=== PATIENT | female | born 1955 | race Caucasian/White ===

== ENCOUNTER → 2017-05-14 09:31 | Outpatient (CLI) | payer SELFPAY ==
[2017-05-14 12:33] LABS: ALB/GLOB Ratio 1.1 RATIO (0.9-2.4); AST(SGOT) 16 U/L (15-37); Alanine Aminotransfer ALT/SGPT 21 U/L (13-56); Albumin, Serum 3.6 g/dL (3.2-5.0); Alkaline Phosphatase 38 U/L (45-117); Anion Gap 4 (5-15); BUN 16 mg/dL (7-18); BUN/Creat Ratio 21.8 RATIO (10-20); Calcium,Total 8.9 mg/dL (8.5-10.1); Chloride 108 mmol/L (98-107); Creatinine, Serum 0.74 mg/dL (0.55-1.02); EST Glomerular Filtration Rate 85 mL/min (>60); Est Glom Filt Rate - Afr Amer 103 mL/min (>60); Globulin 3.2 g/dL (2.2-4.2); Glucose 75 mg/dL (74-106); Potassium 3.8 mmol/L (3.5-5.1); Protein, Total 6.8 g/dL (6.4-8.2); Sodium Level 143 mmol/L (136-145)
[2017-05-14 12:38] LABS: Absolute Lymphocyte Count 2.57 X10^3/ul (0.83-4.51); Absolute Neutrophil Count 1.5 X10^3/uL (2.0-7.7); Basophil# 0.01 X10^3/uL; Basophil% 0.2 % (0-1); Eosinophil# 0.09 X10^3/uL; Eosinophils% 1.9 % (0-5); Hematocrit 39.6 % (37-47); Hemoglobin 12.8 g/dl (12.0-15.0); Lymphocyte # 2.57 X10^3/ul (4.0); Lymphocyte % 55.5 % (19-41); Mean Corp Hgb Conc 32.3 g/gl (32-36); Mean Corpuscular Volume 95.9 fL (81-99); Mean Platelet Vol. 10.9 fl (6.2-12.0); Monocyte# 0.49 X10^3/uL; Monocyte% 10.6 % (0-10); Neutrophil # 1.46 X10^3/uL (2.7-7.7); Neutrophil % 31.6 % (47-70); Platelet Count 166 K/mm3 (150-450); RBC Distribution Width CV 13.9 % (11.6-14.6); RBC Distribution Width SD 48.5 fl (35.1-43.9); Red Blood Count 4.13 M/mm3 (4.2-5.4); White Blood Count 4.6 K/mm3 (4.4-11.0)
[2017-05-14 12:39] LABS: Valproic Acid (Depakene) Level 92 ug/mL (50-100)
[2017-05-14 12:48] LABS: POSITIVE COUNT NO; POSITIVE DIFFERENTIAL NO; POSITIVE MORPHOLOGY NO
== END ==
PROVIDERS: PCP Family Medicine; Visit Provider Psychiatry & Neurology Neurology
DX: G40.009 Localization-related (focal) (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, not intractable, without status epilepticus (principal); M81.0 Age-related osteoporosis without current pathological fracture
CPT/HCPCS: 36415; 80053; 80164; 85025

== ENCOUNTER → 2018-06-03 | Outpatient (CLI) | payer SELFPAY ==
[2018-06-03 12:55] LABS: Valproic Acid (Depakene) Level 90 ug/mL (50-100)
[2018-06-03 13:03] LABS: ALB/GLOB Ratio 0.9 RATIO (0.9-2.4); AST(SGOT) 17 U/L (15-37); Alanine Aminotransfer ALT/SGPT 20 U/L (13-56); Albumin, Serum 3.6 g/dL (3.2-5.0); Alkaline Phosphatase 48 U/L (45-117); Anion Gap 5 (5-15); BUN 21 mg/dL (7-18); BUN/Creat Ratio 24.8 RATIO (10-20); Calcium,Total 9.4 mg/dL (8.5-10.1); Chloride 105 mmol/L (98-107); Creatinine, Serum 0.85 mg/dL (0.55-1.02); EST Glomerular Filtration Rate 72 mL/min (>60); Est Glom Filt Rate - Afr Amer 88 mL/min (>60); Globulin 3.8 g/dL (2.2-4.2); Glucose 88 mg/dL (74-106); Potassium 4.1 mmol/L (3.5-5.1); Protein, Total 7.4 g/dL (6.4-8.2); Sodium Level 141 mmol/L (136-145)
== END | disposition home or self-care (01) ==
PROVIDERS: Family Provider Family Medicine; PCP Family Medicine; Referring Provider Psychiatry & Neurology Neurology; Visit Provider Psychiatry & Neurology Neurology
DX: G40.009 Localization-related (focal) (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, not intractable, without status epilepticus (principal)
CPT/HCPCS: 36415; 80053; 80164

== ENCOUNTER → 2019-07-07 09:47 | Outpatient (CLI) | payer SELFPAY ==
[2019-07-07 12:13] LABS: Absolute Lymphocyte Count 2.57 X10^3/uL (0.83-4.51); Absolute Neutrophil Count 2.4 X10^3/uL (2.0-7.7); Basophil# 0.01 X10^3/uL; Basophil% 0.2 % (0-1); Eosinophil# 0.05 X10^3/uL; Eosinophils% 0.9 % (0-5); Hemoglobin 13.3 g/dL (12.0-15.0); Lymphocyte # 2.57 X10^3/ul (4.0); Lymphocyte % 45.8 % (19-41); Mean Corp Hgb Conc 33.3 g/dL (32-36); Mean Corpuscular Hgb 31.6 pg (27.0-32.0); Mean Platelet Vol. 10.5 fl (6.2-12.0); Monocyte# 0.58 X10^3/uL; Monocyte% 10.3 % (0-10); NRBC Flagged by Analyzer 0 % (0-5); Neutrophil # 2.39 X10^3/uL (2.7-7.7); Neutrophil % 42.6 % (47-70); Platelet Count 172 K/mm3 (150-450); RBC Distribution Width CV 13.6 % (11.6-14.6); RBC Distribution Width SD 47.3 fl (35.1-43.9); Red Blood Count 4.21 M/mm3 (4.2-5.4); White Blood Count 5.6 K/mm3 (4.4-11.0)
[2019-07-07 12:34] LABS: ALB/GLOB Ratio 1.1 RATIO (0.9-2.4); AST(SGOT) 15 U/L (15-37); Alanine Aminotransfer ALT/SGPT 22 U/L (13-56); Albumin, Serum 3.8 g/dL (3.2-5.0); Alkaline Phosphatase 44 U/L (45-117); Amylase 61 U/L (25-115); Anion Gap 5 (5-15); BUN 20 mg/dL (7-18); Calcium,Total 9.5 mg/dL (8.5-10.1); Chloride 109 mmol/L (98-107); Creatinine, Serum 0.84 mg/dL (0.55-1.02); EST Glomerular Filtration Rate 73 mL/min (>60); Est Glom Filt Rate - Afr Amer 89 mL/min (>60); Globulin 3.5 g/dL (2.2-4.2); Glucose 83 mg/dL (74-106); Lipase 169 U/L (73-393); Protein, Total 7.3 g/dL (6.4-8.2); Sodium Level 143 mmol/L (136-145)
[2019-07-07 12:38] LABS: Valproic Acid (Depakene) Level 78 ug/mL (50-100)
== END ==
PROVIDERS: PCP Family Medicine; Referring Provider Psychiatry & Neurology Neurology; Visit Provider Psychiatry & Neurology Neurology
DX: G40.009 Localization-related (focal) (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, not intractable, without status epilepticus (principal); G47.00 Insomnia, unspecified; M81.0 Age-related osteoporosis without current pathological fracture
CPT/HCPCS: 36415; 80053; 80164; 82150; 83690; 85025

== ENCOUNTER → 2019-08-25 12:13 | Outpatient (CLI) | payer SELFPAY ==
--- NOTE | 2019-08-25 12:16 | BI_ITS ---
MAMMOGRAPHY - BILATERAL SCREENING REASON FOR EXAM: Female, 64 years old. Routine annual screening examination. PERTINENT HISTORY: Mother with breast cancer. TECHNIQUE: Digital bilateral breast corazon (3D mammographic acquisition) in the CC and MLO projections. 2-D mediolateral oblique (MLO) and craniocaudad (CC) views of both breasts were obtained. CAD: Full Field Digital Mammography with Computer Added Detection was performed. COMPARISON: Comparison is made with prior outside examination dated July 19, 2016. FINDINGS: Breast Composition: The breasts are extremely dense, which lowers the sensitivity of mammography. There are no dominant masses or suspicious calcifications. No other significant abnormalities are identified. There has been no significant change since the prior study. BI/SCREEN MAMM (CAD) W/CORAZON BILAT IMPRESSION: Stable bilateral screening mammogram. Yearly follow-up mammogram recommended. (A) ASSESSMENT CATEGORY: BIRADS Category 1: Negative. A letter regarding these results will be sent to the patient by the facility within 30 days. Approximately 10% of breast cancers are not detected by mammography. A normal mammogram should not delay biopsy of a clinically suspicious abnormality. [id number] Electronically Signed: Darrell Carroll, at 13:47 EDT , Service support ,
[2019-08-31 07:08] LABS: HPV APTIMA, High Risk Negative (Negative)
== END ==
PROVIDERS: PCP Family Medicine; Referring Provider Nurse Practitioner Women's Health; Visit Provider Nurse Practitioner Women's Health
DX: Z12.31 Encounter for screening mammogram for malignant neoplasm of breast (principal); Z80.3 Family history of malignant neoplasm of breast; Z12.4 Encounter for screening for malignant neoplasm of cervix
CPT/HCPCS: 77063; 77067; 87624; 88175; G0145

== ENCOUNTER → 2020-06-04 08:23 | Outpatient (CLI) | payer SELFPAY ==
[2019-08-25 13:02] VITALS: BMI 26.3
[2020-06-04 09:56] LABS: Absolute Lymphocyte Count 2.68 X10^3/uL (0.83-4.51); Absolute Neutrophil Count 1.9 X10^3/uL (2.0-7.7); Basophil# 0.02 X10^3/uL; Basophil% 0.4 % (0-1); Eosinophils% 1.9 % (0-5); Hematocrit 40.2 % (37-47); Hemoglobin 12.8 g/dL (12.0-15.0); Lymphocyte # 2.68 X10^3/ul (4.0); Lymphocyte % 50.5 % (19-41); Mean Corp Hgb Conc 31.8 g/dL (32-36); Mean Corpuscular Hgb 30.7 pg (27.0-32.0); Mean Corpuscular Volume 96.4 fL (81-99); Mean Platelet Vol. 10.5 fl (6.2-12.0); Monocyte# 0.58 X10^3/uL; Monocyte% 10.9 % (0-10); NRBC Flagged by Analyzer 0 % (0-5); Neutrophil # 1.91 X10^3/uL (2.7-7.7); Neutrophil % 35.9 % (47-70); Platelet Count 187 K/mm3 (150-450); RBC Distribution Width CV 14.1 % (11.6-14.6); RBC Distribution Width SD 50.1 fl (35.1-43.9); Red Blood Count 4.17 M/mm3 (4.2-5.4); White Blood Count 5.3 K/mm3 (4.4-11.0)
[2020-06-04 10:20] LABS: ALB/GLOB Ratio 1.1 RATIO (0.9-2.4); AST(SGOT) 14 U/L (15-37); Alanine Aminotransfer ALT/SGPT 20 U/L (13-56); Albumin, Serum 3.6 g/dL (3.2-5.0); Alkaline Phosphatase 42 U/L (45-117); Anion Gap 4 (5-15); BUN 19 mg/dL (7-18); BUN/Creat Ratio 24.6 RATIO (10-20); Calcium,Total 9.2 mg/dL (8.5-10.1); Chloride 106 mmol/L (98-107); Creatinine, Serum 0.77 mg/dL (0.55-1.02); EST Glomerular Filtration Rate 80 mL/min (>60); Est Glom Filt Rate - Afr Amer 97 mL/min (>60); Globulin 3.4 g/dL (2.2-4.2); Glucose 88 mg/dL (74-106); Potassium 4.2 mmol/L (3.5-5.1); Sodium Level 140 mmol/L (136-145)
[2020-06-04 10:29] LABS: Valproic Acid (Depakene) Level 78 ug/mL (50-100)
== END ==
PROVIDERS: PCP Family Medicine; Referring Provider Psychiatry & Neurology Neurology; Visit Provider Psychiatry & Neurology Neurology
DX: G40.009 Localization-related (focal) (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, not intractable, without status epilepticus (principal)
CPT/HCPCS: 36415; 80053; 80164; 85025

== ENCOUNTER → 2021-02-07 13:07 | Outpatient (CLI) | payer MEDICARE, SELFPAY ==
--- NOTE | 2021-02-07 13:09 | BI_ITS ---
MAMMOGRAPHY - BILATERAL SCREENING REASON FOR EXAM: Female, 66 years old. Routine annual screening examination. PERTINENT HISTORY: Mother with breast cancer. TECHNIQUE: Digital bilateral breast corazon (3D mammographic acquisition) in the CC and MLO projections. 2-D mediolateral oblique (MLO) and craniocaudad (CC) views of both breasts were obtained. CAD: Full Field Digital Mammography with Computer Added Detection was performed. COMPARISON: Comparison is made with prior study dated 08/25/2019. FINDINGS: Breast Composition: The breasts are extremely dense, which lowers the sensitivity of mammography. There are no dominant masses or suspicious calcifications. No other significant abnormalities are identified. There has been no significant change since the prior study. BI/SCRN MAMM (CAD)W/CORAZON BILAT IMPRESSION: Stable bilateral screening mammogram. Yearly follow-up mammogram recommended. (A) ASSESSMENT CATEGORY: BIRADS Category 2: Benign. A letter regarding these results will be sent to the patient by the facility within 30 days. Approximately 10% of breast cancers are not detected by mammography. A normal mammogram should not delay biopsy of a clinically suspicious abnormality. [id number] Electronically Signed: Darrell Carroll MD at 14:36 EST , Service support ,
== END ==
PROVIDERS: PCP Family Medicine; Referring Provider Nurse Practitioner Women's Health; Visit Provider Nurse Practitioner Women's Health
DX: Z12.31 Encounter for screening mammogram for malignant neoplasm of breast (principal); Z80.3 Family history of malignant neoplasm of breast
CPT/HCPCS: 77063; 77067

== ENCOUNTER 2021-03-17 09:41 | Outpatient (CLI) | payer MEDICARE, SELFPAY ==
--- NOTE | 2021-03-17 09:53 | BD_ITS ---
STUDY: DUAL ENERGY X-RAY ABSORPTIOMETRY / DXA REASON FOR EXAM: Female, 66 years old. Postmenopausal TECHNIQUE: Bone Mineral Density (BMD) measurements of lumbar spine and bilateral hips were obtained. COMPARISON: None. FINDINGS: Lumbar Spine (L1-L4): g/cm2 (0.824) / T-score (-2.0) / Z-score (-0.3) Findings are suggestive of osteopenia with a moderate fracture risk. Left Femur Total: g/cm2 (0.725) / T-score (-1.8) / Z-score (-0.6) Left Femoral Neck: g/cm2 (0.635) / T-score (-1.9) / Z-score (-0.4) Right Femur Total: g/cm2 (0.695) / T-score (-2.0) / Z-score (-0.8) Right Femoral Neck: g/cm2 (0.597) / T-score (-2.3) / Z-score (-0.8) BD/Dexa Bone Density Study IMPRESSION: The patient is considered osteopenic as outlined below according to World [place] Organization (WHO) criteria with a high fracture risk. Reference Information: The T-score is the number of standard deviations above or below the standard which is normal for young adults at their peak bone mineral density. The World Health Organization (WHO) interprets the T-scores as follows: Above -1 Normal bone density Between -1 and -2.5 Osteopenia Equal to / or below -2.5 Osteoporosis As a practical clinical guideline, osteopenia may be graded as follows: Mild -1 through -1.5 Moderate -1.6 through -2.0 Severe -2.1 through -2.4 The Z-score is the number of standard deviations above or below age-matched controls. A Z-score of less than -1.5 would be considered abnormal. References: 1. NIH Osteoporosis and Related Bone Diseases www osteo.org 2. International Society for Clinical Densitometry www iscd.org 3. National Osteoporosis Foundation www nof.org Electronically Signed: Darrell Carroll MD at 11:45 EST , Service support ,
== END 2021-03-17 23:59 | disposition short-term general hospital (02) ==
LOC: OPBD 09:42
PROVIDERS: PCP Family Medicine; Referring Provider Nurse Practitioner Women's Health; Visit Provider Nurse Practitioner Women's Health
DX: Z78.0 Asymptomatic menopausal state (principal)
CPT/HCPCS: 77080

== ENCOUNTER 2021-06-01 10:01 | Outpatient (CLI) | payer MEDICARE, SELFPAY ==
[2021-06-01 12:28] LABS: Absolute Lymphocyte Count 2.08 X10^3/uL (0.83-4.51); Basophil# 0.01 X10^3/uL; Basophil% 0.2 % (0-1); Eosinophil# 0.06 X10^3/uL; Eosinophils% 1.3 % (0-5); Hematocrit 41.9 % (37-47); Hemoglobin 13.5 g/dL (12.0-15.0); Lymphocyte # 2.08 X10^3/ul (0.83-4.51); Lymphocyte % 44.6 % (19-41); Mean Corp Hgb Conc 32.2 g/dL (32-36); Mean Corpuscular Hgb 30.7 pg (27.0-32.0); Mean Corpuscular Volume 95.2 fL (81-99); Mean Platelet Vol. 10.3 fl (6.2-12.0); Monocyte# 0.52 X10^3/uL; Monocyte% 11.2 % (0-10); NRBC Flagged by Analyzer 0 % (0-5); Neutrophil # 1.97 X10^3/uL (2.7-7.7); Neutrophil % 42.3 % (47-70); Platelet Count 199 K/mm3 (150-450); RBC Distribution Width CV 13.8 % (11.6-14.6); RBC Distribution Width SD 48.7 fl (35.1-43.9); White Blood Count 4.7 K/mm3 (4.4-11.0)
[2021-06-01 12:37] LABS: AST(SGOT) 23 U/L (15-37); Alanine Aminotransfer ALT/SGPT 31 U/L (13-56); Albumin, Serum 3.7 g/dL (3.2-5.0); Alkaline Phosphatase 43 U/L (45-117); Anion Gap 3 (5-15); BUN 18 mg/dL (7-18); Calcium,Total 9.2 mg/dL (8.5-10.1); Chloride 108 mmol/L (98-107); EST Glomerular Filtration Rate 67 mL/min (>60); Est Glom Filt Rate - Afr Amer 81 mL/min (>60); Globulin 3.6 g/dL (2.2-4.2); Glucose 85 mg/dL (74-106); Potassium 3.7 mmol/L (3.5-5.1); Protein, Total 7.3 g/dL (6.4-8.2); Sodium Level 141 mmol/L (136-145)
[2021-06-01 12:43] LABS: Valproic Acid (Depakene) Level 86 ug/mL (50-100)
== END 2021-06-01 23:59 | disposition home or self-care (01) ==
LOC: MTLAB 10:02
PROVIDERS: PCP Family Medicine; Referring Provider Psychiatry & Neurology Neurology; Visit Provider Psychiatry & Neurology Neurology
DX: G40.009 Localization-related (focal) (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, not intractable, without status epilepticus (principal)
CPT/HCPCS: 36415; 80053; 80164; 85025

== ENCOUNTER → 2022-07-13 | Outpatient (CLI) | payer MEDICARE, SELFPAY ==
--- NOTE | 2022-07-13 12:20 | BI_ITS ---
MAMMOGRAPHY - BILATERAL SCREENING REASON FOR EXAM: Female, 67 years old. Routine annual screening examination. PERTINENT HISTORY: Mother with breast cancer. TECHNIQUE: Digital bilateral breast corazon (3D mammographic acquisition) in the CC and MLO projections. 2-D mediolateral oblique (MLO) and craniocaudad (CC) views of both breasts were obtained. CAD: Full Field Digital Mammography with Computer Added Detection was performed. COMPARISON: Comparison is made with prior examination dated February 07, 2021 and August 25, 2019. FINDINGS: Breast Composition: The breasts are extremely dense, which lowers the sensitivity of mammography. There are no dominant masses or suspicious calcifications. No other significant abnormalities are identified. There has been no significant change since the prior study. BI/SCRN MAMM (CAD)W/CORAZON BILAT IMPRESSION: Stable bilateral screening mammogram. Yearly follow-up mammogram recommended. (A) ASSESSMENT CATEGORY: BIRADS Category 1: Negative. A letter regarding these results will be sent to the patient by the facility within 30 days. Approximately 10% of breast cancers are not detected by mammography. A normal mammogram should not delay biopsy of a clinically suspicious abnormality. [id number] Electronically Signed: Darrell Carroll MD at 13:55 EDT ,
== END | disposition home or self-care (01) ==
LOC: OPBI 12:19
PROVIDERS: PCP Family Medicine; Referring Provider Family Medicine; Visit Provider Family Medicine
DX: Z12.31 Encounter for screening mammogram for malignant neoplasm of breast (principal); Z80.3 Family history of malignant neoplasm of breast
CPT/HCPCS: 77063; 77067

== ENCOUNTER → 2023-05-21 | Outpatient (CLI) | payer MEDICARE, SELFPAY ==
[2023-05-21 10:38] LABS: Absolute Neutrophil Count 1.5 X10^3/uL (2.0-7.7); Basophil# 0.02 X10^3/uL; Basophil% 0.4 % (0-1); Eosinophil# 0.17 X10^3/uL; Eosinophils% 3.8 % (0-5); Hematocrit 39.5 % (37-47); Lymphocyte % 51.5 % (19-41); Mean Corp Hgb Conc 32.9 g/dL (32-36); Mean Platelet Vol. 10.5 fl (6.2-12.0); Monocyte% 11.2 % (0-10); NRBC Flagged by Analyzer 0 % (0-5); Neutrophil # 1.47 X10^3/uL (2.7-7.7); Neutrophil % 32.9 % (47-70); Platelet Count 153 K/mm3 (150-450); RBC Distribution Width CV 13.8 % (11.6-14.6); RBC Distribution Width SD 47.6 fl (35.1-43.9); White Blood Count 4.5 K/mm3 (4.4-11.0)
[2023-05-21 13:17] LABS: ALB/GLOB Ratio 1.1 RATIO (0.9-2.4); AST(SGOT) 17 U/L (15-37); Alanine Aminotransfer ALT/SGPT 20 U/L (13-56); Albumin, Serum 3.6 g/dL (3.2-5.0); Alkaline Phosphatase 38 U/L (45-117); Anion Gap 7 (5-15); BUN 25 mg/dL (7-18); BUN/Creat Ratio 29.2 RATIO (10-20); Calcium,Total 9.3 mg/dL (8.5-10.1); Chloride 107 mmol/L (98-107); Creatinine, Serum 0.86 mg/dL (0.55-1.02); EST Glomerular Filtration Rate 70 mL/min (>60); Est Glom Filt Rate - Afr Amer 85 mL/min (>60); Globulin 3.3 g/dL (2.2-4.2); Glucose 86 mg/dL (74-106); Potassium 4.3 mmol/L (3.5-5.1); Protein, Total 6.9 g/dL (6.4-8.2); Sodium Level 142 mmol/L (136-145)
[2023-05-21 13:22] LABS: Valproic Acid (Depakene) Level 94 ug/mL (50-100)
== END | disposition home or self-care (01) ==
LOC: MTLAB 09:37
PROVIDERS: PCP Family Medicine; Referring Provider Psychiatry & Neurology Neurology; Visit Provider Psychiatry & Neurology Neurology
DX: G40.009 Localization-related (focal) (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, not intractable, without status epilepticus (principal)
CPT/HCPCS: 36415; 80053; 80164; 85025

== ENCOUNTER → 2023-07-18 | Outpatient (CLI) | payer MEDICARE, SELFPAY ==
--- NOTE | 2023-07-18 09:39 | BI_ITS ---
MAMMOGRAPHY - BILATERAL SCREENING 3-D TOMOSYNTHESIS REASON FOR EXAM: Female, 68 years old. Screening for breast cancer PERTINENT HISTORY: No significant family history. TECHNIQUE: 2-D mammograms and 3-D Tomosynthesis of the breast (s) were performed. CAD was performed. COMPARISON: 07/13/2022 FINDINGS: The breast composition is heterogeneously dense that can obscure small breast masses. Scattered benign calcifications are seen. No dense spiculated masses or suspicious microcalcifications are identified. No architectural distortion is identified. There is no skin thickening or retraction. There has been no significant change since the prior study. BI/SCRN MAMM (CAD)W/CORAZON BILAT IMPRESSION: No mammographic signs of malignancy. Routine yearly mammograms recommended. ASSESSMENT CATEGORY: BIRADS Category 1: Negative. A letter regarding these results will be sent to the patient by the facility within 30 days. FOLLOW UP RECOMMENDATION: Yearly follow up mammogram recommended. (A) Approximately 10% of breast cancers are not detected by mammography. A normal mammogram should not delay biopsy of a clinically suspicious abnormality. Electronically Signed: Demian Martinez MD at 10:57 EDT ,
== END | disposition home or self-care (01) ==
LOC: OPBI 09:39
PROVIDERS: PCP Family Medicine; Referring Provider Nurse Practitioner Women's Health; Visit Provider Nurse Practitioner Women's Health
DX: Z12.31 Encounter for screening mammogram for malignant neoplasm of breast (principal)
CPT/HCPCS: 77063; 77067

== ENCOUNTER → 2024-06-11 | Outpatient (CLI) | payer MEDICARE, SELFPAY ==
[2024-06-11 12:53] LABS: Absolute Lymphocyte Count 2.56 X10^3/uL (0.83-4.51); Absolute Neutrophil Count 2.9 X10^3/uL (2.0-7.7); Basophil# 0.01 X10^3/uL; Basophil% 0.2 % (0-1); Eosinophil# 0.06 X10^3/uL; Hematocrit 41.4 % (37-47); Hemoglobin 13.8 g/dL (12.0-15.0); Lymphocyte # 2.56 X10^3/ul (0.83-4.51); Lymphocyte % 43.1 % (19-41); Mean Corp Hgb Conc 33.3 g/dL (32-36); Mean Corpuscular Hgb 30.9 pg (27.0-32.0); Mean Corpuscular Volume 92.6 fL (81-99); Mean Platelet Vol. 10.7 fl (6.2-12.0); Monocyte# 0.43 X10^3/uL; Monocyte% 7.2 % (0-10); NRBC Flagged by Analyzer 0 % (0-5); Neutrophil # 2.86 X10^3/uL (2.7-7.7); Neutrophil % 48.2 % (47-70); Platelet Count 219 K/mm3 (150-450); RBC Distribution Width CV 14.2 % (11.6-14.6); RBC Distribution Width SD 48.6 fl (35.1-43.9); Red Blood Count 4.47 M/mm3 (4.2-5.4); White Blood Count 5.9 K/mm3 (4.4-11.0)
[2024-06-11 13:21] LABS: Valproic Acid (Depakene) Level 73 ug/mL (50-100)
[2024-06-11 13:27] LABS: ALB/GLOB Ratio 1.5 RATIO (0.9-2.4); AST(SGOT) 22 U/L (<=31); Alanine Aminotransfer ALT/SGPT 14 U/L (<=34); Albumin, Serum 4.5 g/dL (3.4-4.8); Alkaline Phosphatase 49 U/L (35-104); Anion Gap 13 (5-15); BUN 20 mg/dL (4-19); BUN/Creat Ratio 22.6 RATIO (10-20); Calcium,Total 10.1 mg/dL (7.6-11.0); Carbon Dioxide 23.9 mmol/L (21.0-32.0); Chloride 103 mmol/L (98-108); EST Glomerular Filtration Rate 70 (>60); Globulin 2.9 g/dL (2.2-4.2); Glucose 99 mg/dL (70-99); Potassium 4.3 mmol/L (3.3-5.1); Protein, Total 7.5 g/dL (5.9-8.4); Sodium Level 140 mmol/L (133-145); Total Bilirubin 0.42 mg/dL (0.00-1.30)
== END | disposition home or self-care (01) ==
LOC: MTLAB 09:57
PROVIDERS: PCP Family Medicine; Referring Provider Psychiatry & Neurology Neurology; Visit Provider Psychiatry & Neurology Neurology
DX: G40.009 Localization-related (focal) (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, not intractable, without status epilepticus (principal)
CPT/HCPCS: 36415; 80053; 80164; 85025

== ENCOUNTER → 2024-09-05 | Outpatient (CLI) | payer MEDICARE, SELFPAY ==
--- NOTE | 2024-09-05 10:36 | BI_ITS ---
EXAM: SCRN MAMM (CAD)W/CORAZON BILAT DATE: 09/05/2024 CLINICAL HISTORY: F, Age 69 y/o , SCREENING TECHNIQUE: SCRN MAMM (CAD)W/CORAZON BILAT COMPARISON: Prior exam(s) dated 07/18/2023, 07/13/2022, 02/07/2021. FINDINGS: TISSUE DENSITY: The breasts are heterogeneously dense, which may obscure small masses. The mammogram demonstrates that the patient has dense breasts. Supplemental screening with whole breast ultrasound or MRI may be considered for further evaluation. Bilateral Breast Mammographic Findings: No significant masses, calcifications or other abnormalities are identified. BI/SCRN MAMM (CAD)W/CORAZON BILAT IMPRESSION: There is no mammographic evidence of malignancy. OVERALL FINAL ASSESSMENT BI-RADS 1: NEGATIVE. RECOMMEND ANNUAL MAMMOGRAPHIC SCREENING. RECOMMENDATION: Routine annual follow-up in 1 Year. A letter with findings and recommendations will be mailed to the patient. Reading Location: [id number]
--- OUTSIDE RECORDS SUMMARY | 2024-09-05 19:13 | XMS RPT_ITS | CCD ---
Author Organization [facility] CliniSymt Care Team Providers Care Waste Treatment Operator Name Role Phone THELMA PRASAD (HOSPICE CARE SALES CONSULTANT) Unavailable Dr. Jamal Choudhury DO Primary Care Provider Ruy RENEE, Dr. Gutierrez Attending Provider Unavailab Dr. Matt Blunt MD Referring Provider UnavailDr. Jamal Hinojosa DO Referring Provider Padma HOSPICE CARE SALES CONSULTANT-Thelma Souza Attending Provider Igor Seth Attending Unavailable Jamal Holbrook Primary Care Unavailable Matt Redmond Attending Unavailable Matt Redmond Referring Unavailable Jamal Holbrook Primary Care Unavailable Jamal Holbrook Attending Unavailable Jamal Holbrook Referring Unavailable Jamal Holbrook Primary Care Unavailable Jamal Holbrook Primary Care Unavailable Thelma Prasad NP Attending Unavailable Jamal Holbrook Referring Unavailable Alina Marino Attending Unavailable Jamla Holbrook Primary Care Unavailable Matt Redmond Attending Unavailable Matt Redmond Referring Unavailable Jmaal Holbrook Primary Care Unavailable Medications Current Medications Medication Drug Class(es) Dates Sig (Normalized) Sig (Original) acetaminophen 500 mg / diphenhydrAMINE hydrochloride 25 mg oral tablet (2 sources) Histamine-1 Receptor Antagonist Start: 09-04-2023 Diphenhydramine-Ac etaminophen (Tylenol Pm Extra Strength) 25-500 mg tablet Active 1 {tbl} PO AT BEDTIME as needed September 04, 2023 12:00am estradiol 0.01 mg vaginal insert (20 sources) Estrogen Start: 05-15-2017 End: 08-27-2024 Estradiol 10 mcg tablet Active 10 ug VAGINAL TWICE A WEEK 24 August 27, 2024 1:23pm Multivitamin tablet (2 sources) Start: 06-20-2023 Multivitamin tablet Active 1 {tbl} PO DAILY June 20, 2023 12:00am 24 hr divalproex sodium 500 mg extended release oral tablet (6 sources) Mood Stabilizer, Anti-epileptic Agent Start: 05-16-2013 take 1 tablet by mouth once daily Divalproex 250 MG tablet Active 250 mg PO DAILY May 16, 2013 12:00am Start: 05-16-2013 take 1 tablet by loan th every twenty-four hours at bedtime Divalproex 500 MG tablet extended release 24 hr Active 500 mg PO AT BEDTIME May 16, 2013 12:00am Completed/Discontinued Medications Medication Drug Class(es) Dates Sig (Normalized) Sig (Original) docosahexaenoic acid 144 mg / eicosapentaenoic acid 216 mg / vitamin e 2 unt oral capsule (2 sources) Start: 09-04-2023 End: 08-27-2024 [place]-3 Fatty Acids-Fish Oil (Fish Oil) 360-1,200 mg capsule Discontinued 1 NMA PO DAILY as needed September 04, 2023 12:00am August 27, 2024 1:21pm gabapentin 100 mg oral capsule (3 sources) Anti-epileptic Agent Start: 05-16-2013 End: 06-20-2023 Gabapentin 100 MG capsule Discontinued as needed for Sleep May 16, 2013 12:00am June 20, 2023 9:23am Start: 05-16-2013 Gabapentin Act mar May 16, 2013 12:00am omeprazole 20 mg delayed release oral capsule (3 sources) Proton Pump Inhibitor Start: 05-16-2013 End: 08-25-2019 take 1 capsule by mouth once daily Omeprazole 20 MG capsule Discontinued 20 mg PO DAILY 30 0 May 16, 2013 12:00am August 25, 2019 12:59pm tolterodine tartrate 1 mg oral tablet (2 sources) Cholinergic Muscarinic Antagonist Start: 06-20-2023 End: 08-27-2024 take 1 tablet by mouth at bedtime Tolterodine (Detrol) 1 mg tablet Discontinued 1 mg PO AT BEDTIME June 20, 2023 12:00am August 27, 2024 1:21pm Problems Active Problems Problem Classification Problem Date Documented Da te Episodic/Chronic Epilepsy; convulsions (2 sources) 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, not intractable, without status epilepticus; Translations: [Localization-rela ruddy (focal) (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, not intractable, without status epilepticus] Onset: 06-16-2024 Chronic Genitourinary symptoms and ill-defined conditions (2 sources) Nocturia; Translations: [Nocturia] 06-20-2023 Episodic Menopausal disorders (3 sources) Atrophic vaginitis; Translations: [Postmenopausal atrophic vaginitis] 03-02-2021 Chronic Comment on above: vagifem Other and unspecified benign neoplasm (3 sources) Pigmented skin lesion ; Translations: [Melanocytic nevi, unspecified] 03-02-2021 Episodic Other screening for suspected conditions (not mental disorders or infectious disease) (2 sources) Patient encounter status; Translations: [Encounter for screening for malignant neoplasm of colon] Onset: 08-27-2024 09-04-2023 Episodic Past or Other Problems Problem Classification Problem Date Documented Da te Episodic/Chronic Other bone disease and musculoskeletal deformities (1 source) Other specified disorders of bone density and structure, unspecified site; Translations: [Other specified disorders of bone density and structure, unspecified site] Onset: 08-07-2016 Episodic Results Test Name Value Interpretation Reference Range 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 Reporton 08-27-2024 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 Report [facility] [address], [place] [address] OFFICE VISIT Date of Service: 08/27/24 MR#: [id number] Acct: [id number] Name: PETRA TOLLIVER Rep #: [id number] : 1955 Provider: LUÍS britton Age/Sex: 69/F Location: [facility] [place] Status: Signed Intake Vital Signs 09/04/23 11:50 08/27/24 13:16 08/27/24 13:21 Height 5 ft 6 in 5 ft 6 in 5 ft 6 in Weight: 165 lb 171 lb 6 oz BMI 26.6 27.6 BP 118/82 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: No Is patient in pain?: No Allergies No Known Allergies Allergy (Verified 08/27/24 13:22) Medications ???Medication ???Instructions ???Recorded ???Confirmed ???Type divalproex 250 mg tablet,extended 250 mg PO DAILY 03/21/14 07/02/25 History release 24 hr divalproex 500 mg tablet,extended 500 mg PO QHS 05/16/13 08/27/24 H istory release 24 hr multivitamin 1 tab PO DAILY 06/20/23 08/27/24 H istory diphenhydramine 25 1 tab PO QHS PRN 09/04/23 08/27/24 History mg-acetaminophen 500 mg tablet (Tylenol PM Extra Strength) estradiol 10 mcg vaginal tablet 10 mcg vaginal 2XW #24 tabs 08/27/24 Rx Is last menstrual period known: No Post menopausal: Yes Patient : No : [facility] Epilepsy Surgical History Hx of colonoscopy History of tonsillectomy History of appendectomy Family History Father Cancer lymphoma Sister Cancer lymphoma Mother Breast cancer, Onset Age: 85 Social History household members: spouse current occupational status: retired Smoking Status: Never smoker alcohol intake: current details: social substance use type: does not use caffeine: Yes what type of physical activity do you participate in: walking and bicycling frequency: 3-4 times per week seatbelt use: always do you feel safe at home: Yes 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 Denies concerns. Wishes to continue vaginal estrogen Last PAP: NA History of abnormal PAP: no Last mammogram: 06/2023 History of abnormal mammogram: no Colon cancer screenin Other preventative health care screenings: [facility] Female Reproductive History Questions: metorrhagia: No, sexually active: Yes, dyspareunia: No and PCB: No Menopausal Treatment: Yes Vaginal Estrogen ROS Const Constitutional: Denies fatigue, weight gain or weight loss Cardio Card: Denies chest pain Resp Resp: Denies cough or dyspnea on exertion GI GI: Denies abdominal pain, bloating, change in stool character, constipation or vomiting : Reports as per HPI; Denies difficulty voiding, pelvic pain, urinary frequency, urinary incontinence, urinary urgency, vaginal discharge or vaginal pruritus Exam Const General: cooperative, healthy appearing, no acute distress and well developed Orientation: alert, oriented to person and oriented to place HENLA Head: normal to inspection Neck Neck: normal visual inspection Thyroid: thyroid normal Lymphatic: no lymphadenopathy noted Chest Breast inspection: normal inspection of the breasts and normal inspection of the axillae Breast palpation: normal palpation of the breasts, normal palpation of the axillae and no axillary lymphadenopathy Resp Effort Inspection: normal respiratory effort GI Palpation: soft, no masses and nontender Rectal Exam: deferred External Female Exam: normal external appearance and normal appearance of the urethra Urethra: normal appearance of the urethra and normal palpation Speculum Exam - Vagina: normal appearance of the vagina and normal vaginal discharge Speculum Exam - Cervix: normal appearance of the cervix Bimanual Exam- Vagina Uterus: normal bimanual exam, uterine size normal, uterine shape normal and non-tender Bimanual Exam- Adnexa, other: normal adnexae, no masses, normal and non-tender Pelvic Support: normal Neuro General: patient alert and patient oriented x3 Psych Affect: normal affect Coding Level (more content not included)... Normal [facility] Absolute lymphocyte countOrd ered By: Matt Redmond on 06-11-2024 Lymphocytes Auto (Unsp spec) [#/Vol] 2.56 10*3/uL 0.83-4.51 [facility] Absolute neutrophil countOrd ered By: Matt Redmond on 06-11-2024 Neutrophils (Bld) [#/Vol] 2.9 10*3/uL 2.0-7.7 [facility] Anion gap in Serum or Plasma Ordered By: Matt Redmond on 06-11-2024 Anion gap [Moles/Vol] 13 mmol/L 5-15 [facility] Automated lymphocyte count a s percentage of total leukocytesOrdered By: Matt Redmond on 06-11-2024 Lymphocytes/100 WBC Auto (Unsp spec) 43.1 % High 19-41 [facility] BUN/creatinine ratioOrdered By: Matt Redmond on 06-11-2024 Urea nitrogen/Creatinine [Mass ratio] 22.6 mg/mg High 10-20 [facility] Basophil percentageOrdered B y: Matt Redmond on 06-11-2024 Basophils/100 WBC (Bld) 0.2 % 0-1 [facility] Bilirubin, totalOrdered By: Matt Redmond on 06-11-2024 Bilirubin [Mass/Vol] 0.42 mg/dL 0.00-1.30 [facility] CBC W/Diff, Automatedon 05-27 Absolute Lymph 2.56 X10 3/uL Normal 0.83-4.51 [facility] Comment on above: Performed By: #### L 500.4050, L501.8100, L100.0100 #### [facility] [address] [place], [address] Absolute Neut 2.9 X10 3/uL Normal 2.0-7.7 [facility] Comment on above: Performed By: #### L 500.4050, L501.8100, L100.0100 #### [facility] [address] [place], [address] Basophils/100 WBC (Bld) 0.2 % Normal 0-1 [facility] Comment on above: Performed By: #### L 500.4050, L501.8100, L100.0100 #### [facility] [address] [place], [address] Eosinophils/100 WBC (Bld) 1.0 % Normal 0-5 [facility] Comment on above: Performed By: #### L 500.4050, L501.8100, L100.0100 #### [facility] [address] [place], [address] Erythrocyte distribution width (RBC) [Ratio] 14.2 % Normal 11.6-14.6 [facility] Comment on above: Performed By: #### L 500.4050, L501.8100, L100.0100 #### [facility] [address] [place], [address] Hematocrit (Bld) [Volume fraction] 41.4 % Normal 37-47 [facility] Comment on above: Performed By: #### L 500.4050, L501.8100, L100.0100 #### [facility] [address] [place], [address] Hemoglobin (Bld) [Mass/Vol] 13.8 g/dL Normal 12.0-15.0 [facility] Comment on above: Performed By: #### L 500.4050, L501.8100, L100.0100 #### [facility] [address] [place], [address] IG% 0.300 Normal 0.0-0.9 [facility] Comment on above: Result Comment: IG% - Immature Granulocytes (promyelocytes, myelocytes and metamyelocytes) > 1% indicates that a LEFT SHIFT is Present. Performed By: #### L 500.4050, L501.8100, L100.0100 #### [facility] [address] [place], [address] Lymphocytes/100 WBC (Bld) 43.1 % High 19-41 [facility] Comment on above: Performed By: #### L 500.4050, L501.8100, L100.0100 #### [facility] [address] [place], [address] MCH (RBC) [Entitic mass] 30.9 pg Normal 27.0-32.0 [facility] Comment on above: Performed By: #### L 500.4050, L501.8100, L100.0100 #### [facility] [address] [place], [address] MCHC (RBC) [Mass/Vol] 33.3 g/dL Normal 32-36 [facility] Comment on above: Performed By: #### L 500.4050, L501.8100, L100.0100 #### [facility] [address] [place], [address] MCV (RBC) [Entitic vol] 92.6 fL Normal 81-99 [facility] Comment on above: Performed By: #### L 500.4050, L501.8100, L100.0100 #### [facility] [address] [place], [address] Monocytes/100 WBC (Bld) 7.2 % Normal 0-10 [facility] Comment on above: Performed By: #### L 500.4050, L501.8100, L100.0100 #### [facility] [address] [place], [address] Neutrophils/100 WBC (Bld) 48.2 % Normal 47-70 [facility] Comment on above: Performed By: #### L 500.4050, L501.8100, L100.0100 #### [facility] [address] [place], [address] Nucleated RBC (Bld) [#/Vol] 0 10*3/uL Normal 0-5 [facility] Comment on above: Performed By: #### L 500.4050, L501.8100, L100.0100 #### [facility] [address] [place], [address] Platelet mean volume (Bld) [Entitic vol] 10.7 fL Normal 6.2-12.0 [facility] Comment on above: Performed By: #### L 500.4050, L501.8100, L100.0100 #### [facility] [address] [place], [address] Platelets (Bld) [#/Vol] 219 10*3/uL Normal 150-450 [facility] Comment on above: Performed By: #### L 500.4050, L501.8100, L100.0100 #### [facility] [address] [place], [address] RBC (Bld) [#/Vol] 4.47 10*6/uL Normal 4.2-5.4 [facility] Comment on above: Performed By: #### L 500.4050, L501.8100, L100.0100 #### [facility] [address] [place], [address] RDW SD 48.6 fl High 35.1-43.9 [facility] Comment on above: Performed By: #### L 500.4050, L501.8100, L100.0100 #### [facility] [address] [place], [address] WBC (Bld) [#/Vol] 5.9 10*3/uL Normal 4.4-11.[address] [facility] Comment on above: Performed By: #### L 500.4050, L501.8100, L100.0100 #### [facility] [address] [place], [address] Carbon dioxide, total [Moles /volume] in Central venous bloodOrdered By: Matt Redmond on 06-11-2024 CO2 [Moles/Vol] 23.9 mmol/L 21.0-32.0 [facility] Chloride assayOrdered By: Coleman Redmond on 06-11-2024 Chloride [Moles/Vol] 103 mmol/L 98-108 [facility] Comprehensive Metabolic Prof ilon 06-11-2024 Albumin [Mass/Vol] 4.5 g/dL Normal 3.4-4.[address] [facility] Comment on above: Order Comment: RED T OP/ SERUM /RT Performed By: #### L 500.4050, L501.8100, L100.0100 #### [facility] [address] [place], [address] Albumin/Globulin [Mass ratio] 1.5 {ratio} Normal 0.9-2.4 [facility] Comment on above: Order Comment: RED T OP/ SERUM /RT Performed By: #### L 500.4050, L501.8100, L100.0100 #### [facility] [address] [place], [address] ALK PHOS 49 U/L Normal 35-104 [facility] Comment on above: Order Comment: RED T OP/ SERUM /RT Performed By: #### L 500.4050, L501.8100, L100.0100 #### [facility] [address] [place], [address] ALT [Catalytic activity/Vol] 14 U/L Normal <=34 [facility] Comment on above: Order Comment: RED T OP/ SERUM /RT Performed By: #### L 500.4050, L501.8100, L100.0100 #### [facility] [address] [place], [address] AST [Catalytic activity/Vol] 22 U/L Normal <=31 [facility] Comment on above: Order Comment: RED T OP/ SERUM /RT Performed By: #### L 500.4050, L501.8100, L100.0100 #### [facility] [address] [place], [address] Bilirubin [Mass/Vol] 0.42 mg/dL Normal 0.00-1.30 [facility] Comment on above: Order Comment: RED T OP/ SERUM /RT Performed By: #### L 500.4050, L501.8100, L100.0100 #### [facility] [address] [place], [address] BUN/CRE 22.6 RATIO High 10-20 [facility] Comment on above: Order Comment: RED T OP/ SERUM /RT Performed By: #### L 500.4050, L501.8100, L100.0100 #### [facility] [address] [place], [address] Calcium [Mass/Vol] 10.1 mg/dL Normal 7.6-11.[address] [facility] Comment on above: Order Comment: RED T OP/ SERUM /RT Performed By: #### L 500.4050, L501.8100, L100.0100 #### [facility] [address] [place], [address] Chloride [Moles/Vol] 103 mmol/L Normal 98-108 [facility] Comment on above: Order Comment: RED T OP/ SERUM /RT Performed By: #### L 500.4050, L501.8100, L100.0100 #### [facility] [address] [place], [address] CO2 [Moles/Vol] 23.9 mmol/L Normal 21.0-32.0 [facility] Comment on above: Order Comment: RED T OP/ SERUM /RT Performed By: #### L 500.4050, L501.8100, L100.0100 #### [facility] [address] [place], [address] Creatinine [Mass/Vol] 0.90 mg/dL Normal 0.70-1.20 [facility] Comment on above: Order Comment: RED T OP/ SERUM /RT Performed By: #### L 500.4050, L501.8100, L100.0100 #### [facility] [address] [place], [address] GAP 13 Normal 5-15 [facility] Comment on above: Order Comment: RED T OP/ SERUM /RT Performed By: #### L 500.4050, L501.8100, L100.0100 #### [facility] [address] [place], [address] GFR/1.73 sq M.predicted among non-blacks MDRD (S/P/Bld) [Vol rate/Area] 70 mL/min/{1.73_m2} Normal >60 [facility] Comment on above: Order Comment: RED T OP/ SERUM /RT Result Comment: mL/m in/1.73m2 CKD-EPI Creatinine Equation (2020) Performed By: #### L 500.4050, L501.8100, L100.0100 #### [facility] [address] [place], [address] Globulin (S) [Mass/Vol] 2.9 g/dL Normal 2.2-4.2 [facility] Comment on above: Order Comment: RED T OP/ SERUM /RT Performed By: #### L 500.4050, L501.8100, L100.0100 #### [facility] [address] [place], [address] Glucose [Mass/Vol] 99 mg/dL Normal 70-[address] [facility] Comment on above: Order Comment: RED T OP/ SERUM /RT Performed By: #### L 500.4050, L501.8100, L100.0100 #### [facility] [address] [place], [address] Potassium [Moles/Vol] 4.3 mmol/L Normal 3.3-5.1 [facility] Comment on above: Order Comment: RED T OP/ SERUM /RT Performed By: #### L 500.4050, L501.8100, L100.0100 #### [facility] [address] [place], [address] Sodium [Moles/Vol] 140 mmol/L Normal 133-[address] [facility] Comment on above: Order Comment: RED T OP/ SERUM /RT Performed By: #### L 500.4050, L501.8100, L100.0100 #### [facility] [address] [place], [address] T PROT 7.5 g/dL Normal 5.9-8.4 [facility] Comment on above: Order Comment: RED T OP/ SERUM /RT Performed By: #### L 500.4050, L501.8100, L100.0100 #### [facility] [address] [place], [address] Urea nitrogen [Mass/Vol] 20 mg/dL High 4-19 [facility] Comment on above: Order Comment: RED T OP/ SERUM /RT Performed By: #### L 500.4050, L501.8100, L100.0100 #### [facility] [address] [place], [address] Eosinophil percentageOrdered By: Matt Redmond on 06-11-2024 Eosinophils/100 WBC (Bld) 1.0 % 0-5 [facility] Erythrocyte distribution wid th (RBC) [Ratio]Ordered By: Matt Redmond on 06-11-2024 Erythrocyte distribution width (RBC) [Entitic vol] 48.6 fL High 35.1-43.[address] [facility] Erythrocyte distribution wid th ratioOrdered By: Matt Redmond on 06-11-2024 Erythrocyte distribution width (RBC) [Ratio] 14.2 % 11.6-14.6 [facility] Erythrocyte distribution wid th standard deviationOrdered By: Matt Redmond on 06-11-2024 Erythrocyte distribution width (RBC) [Ratio] 48.6 fl High 35.1-43.9 [facility] GFR/1.73 sq M.predicted eligio g non-blacks MDRD (S/P/Bld) [Vol rate/Area]Ordered By: Matt Redmond on 06-11-2024 Estimated GFR (MDRD) Non-Af Amer 70 >60 [facility] Comment on above: mL/min/1.73m2 CKD-EP I Creatinine Equation (2020) Glomerular filtration rate ( GFR) estimation/1.73 sq m using serum, plasma, or whole bOrdered By: Matt Redmond on 06-11-2024 GFR/1.73 sq M.predicted among non-blacks MDRD (S/P/Bld) [Vol rate/Area] 70 mL/min/{1.73_m2} >60 [facility] Comment on above: mL/min/1.73m2 CKD-EP I Creatinine Equation (2020) Hematocrit Auto (Bld) [Volum e fraction]Ordered By: Matt Redmond on 06-11-2024 Hematocrit (Bld) [Volume fraction] 41.4 % 37-47 [facility] Hemoglobin measurementOrdere d By: Matt Redmond on 06-11-2024 Hemoglobin (Bld) [Mass/Vol] 13.8 g/dL 12.0-15.0 [facility] Immature granulocytes/100 WB C Auto (Bld)Ordered By: Matt Redmond on 06-11-2024 Immature granulocytes/100 WBC (Bld) 0.300 % 0.0-0.9 [facility] Comment on above: IG% - Immature Granu locytes (promyelocytes, myelocytes and metamyelocytes) > 1% indicates that a LEFT SHIFT is Present. Laboratory - Chemistry and C hemistry - challengeOrdered By: Matt Redmond on 06-11-2024 AST [Catalytic activity/Vol] 22 U/L <32 [facility] Lymphocytes Auto (Unsp spec) [#/Vol]Ordered By: Matt Redmond on 06-11-2024 Lymphocytes (Bld) [#/Vol] 2.56 10*3/uL 0.83-4.5 1 [facility] Lymphocytes/100 WBC Auto (Un sp spec)Ordered By: Matt Redmond on 06-11-2024 Lymphocytes/100 WBC (Bld) 43.1 % High 19-41 [facility] MCV (mean corpuscular volume ) determinationOrdered By: Matt Redmond on 06-11-2024 MCV (RBC) [Entitic vol] 92.6 fL 81-99 [facility] Mean corpuscular hemoglobin (MCH) determinationOrdered By: Matt Redmond on 06-11-2024 MCH (RBC) [Entitic mass] 30.9 pg 27.0-32.0 [facility] Mean corpuscular hemoglobin concentration (MCHC) determinationOrdered By: Matt Redmond on 06-11-2024 MCHC (RBC) [Mass/Vol] 33.3 g/dL 32-36 [facility] Mean platelet volume determi nationOrdered By: Matt Redmond on 06-11-2024 Platelet mean volume (Bld) [Entitic vol] 10.7 fL 6.2-12.0 [facility] Monocyte percentageOrdered B y: Matt Redmond on 06-11-2024 Monocytes/100 WBC (Bld) 7.2 % 0-10 [facility] Neutrophil percentageOrdered By: Matt Redmond on 06-11-2024 Neutrophils/100 WBC (Bld) 48.2 % 47-70 [facility] Nucleated red blood cell per centageOrdered By: Matt Redmond on 06-11-2024 Nucleated RBC/100 WBC (Bld) [Ratio] 0 % 0-5 [facility] Platelet countOrdered By: Coleman Redmond on 06-11-2024 Platelets (Bld) [#/Vol] 219 10*3/uL 150-450 [facility] Potassium (Unsp spec) [Mass/ Vol]Ordered By: Matt Redmond on 06-11-2024 Potassium [Moles/Vol] 4.3 mmol/L 3.3-5.1 [facility] Potassium measurement (mass/ volume)Ordered By: Matt Redmond on 06-11-2024 Potassium (Unsp spec) [Mass/Vol] 4.3 mmol/L 3.3-5.1 [facility] RBC Auto (Bld) [#/Vol]Ordere d By: Matt Redmond on 06-11-2024 RBC (Bld) [#/Vol] 4.47 10*6/uL 4.2-5.4 [facility] Serum creatinine measurement (mass/volume)Ordered By: Matt Redmond on 06-11-2024 Creatinine [Mass/Vol] 0.90 mg/dL 0.70-1.20 [facility] Serum globulin measurementOr dered By: Matt Redmond on 06-11-2024 Globulin (S) [Mass/Vol] 2.9 g/dL 2.2-4.2 [facility] Serum glucose measurement (m ass/volume)Ordered By: Matt Redmond on 06-11-2024 Glucose [Mass/Vol] 99 mg/dL 70-[address] [facility] Serum or plasma alanine altamirano otransferase (ALT) measurementOrdered By: Matt Redmond on 06-11-2024 ALT [Catalytic activity/Vol] 14 U/L <35 [facility] Serum or plasma albumin pricilla urement (mass/volume)Ordered By: Matt Redmond on 06-11-2024 Albumin [Mass/Vol] 4.5 g/dL 3.4-4.[address] [facility] Serum or plasma albumin/glob ulin mass ratioOrdered By: Matt Redmond on 06-11-2024 Albumin/Globulin [Mass ratio] 1.5 {ratio} 0.9-2.4 [facility] Serum or plasma alkaline nico sphatase measurementOrdered By: Matt Redmond on 06-11-2024 ALP [Catalytic activity/Vol] 49 U/L 35-104 [facility] Serum or plasma calcium pricilla urement (mass/volume)Ordered By: Matt Redmond on 06-11-2024 Calcium [Mass/Vol] 10.1 mg/dL 7.6-11.[address] [facility] Serum or plasma urea nitroge n measurement (mass/volume)Ordered By: Matt Redmond on 06-11-2024 Urea nitrogen [Mass/Vol] 20 mg/dL High 4-19 [facility] Serum or plasma valproate me asurement (mass/volume)Ordered By: Matt Redmond on 06-11-2024 Valproate [Mass/Vol] 73 ug/mL 50-100 [facility] Comment on above: Valproic Acid concen trations >100 ug/mL are potentially toxic. Sodium levelOrdered By: Raul Redmond on 06-11-2024 Sodium [Moles/Vol] 140 mmol/L 133-[address] [facility] Total proteinOrdered By: Saul Redmond on 06-11-2024 Protein [Mass/Vol] 7.5 g/dL 5.9-8.[address] [facility] Valproate [Mass/Vol]Ordered By: Matt Redmond on 06-11-2024 Valproic Acid (Depakene) Level 73 ug/mL 50-100 [facility] Comment on above: Valproic Acid concen trations >100 ug/mL are potentially toxic. Valproic Acid (Depakene) Lev susan 06-11-2024 VALPROIC ACID 73 ug/mL Normal 50-100 [facility] Comment on above: Result Comment: Valp roic Acid concentrations >100 ug/mL are potentially toxic. Performed By: #### L 500.4050, L501.8100, L100.0100 #### [facility] [address] [place], [address] White blood cell (WBC) count Ordered By: Matt Redmond on 06-11-2024 WBC (Bld) [#/Vol] 5.9 10*3/uL 4.4-11.[address] [facility] Absolute lymphocyte countOrd ered By: Matt Redmond on 05-21-2023 Lymphocytes Auto (Unsp spec) [#/Vol] 2.30 10*3/uL 0.83-4.51 [facility] Automated lymphocyte count a s percentage of total leukocytesOrdered By: Matt Redmond on 05-21-2023 Lymphocytes/100 WBC Auto (Unsp spec) 51.5 % 19-41 [facility] Basophil percentageOrdered B y: Matt Redmond on 05-21-2023 Basophils/100 WBC (Bld) 0.4 % 0-1 [facility] Bilirubin [Mass/Vol] 0.50 mg/dL 0.20-1.00 [facility] Comment on above: For patients on eltr ombopag therapy, use of Dimension Coker TBIL is not recommended. Chloride [Moles/Vol] 107 mmol/L 98-107 [facility] Eosinophils/100 WBC (Bld) 3.8 % 0-5 [facility] Glucose [Mass/Vol] 86 mg/dL 74-[address] [facility] Hemoglobin (Bld) [Mass/Vol] 13.0 g/dL 12.0-15.0 [facility] Monocytes/100 WBC (Bld) 11.2 % 0-10 [facility] Neutrophils (Bld) [#/Vol] 1.5 10*3/uL 2.0-7.7 [facility] Neutrophils/100 WBC (Bld) 32.9 % 47-70 [facility] Potassium [Moles/Vol] 4.3 mmol/L 3.5-5.1 [facility] Protein [Mass/Vol] 6.9 g/dL 6.4-8.[address] [facility] Sodium [Moles/Vol] 142 mmol/L 136-[address] [facility] WBC (Bld) [#/Vol] 4.5 10*3/uL 4.4-11.[address] [facility] Determination of erythrocyte mean corpuscular volume (MCV)Ordered By: Matt Redmond on 05-21-2023 MCV (RBC) [Entitic vol] 94.0 fL 81-99 [facility] Erythrocyte distribution wid th ratioOrdered By: Matt Redmond on 05-21-2023 Erythrocyte distribution width (RBC) [Ratio] 13.8 % 11.6-14.6 [facility] Erythrocyte distribution wid th standard deviationOrdered By: Mtat Redmond on 05-21-2023 Erythrocyte distribution width (RBC) [Entitic vol] 47.6 fL 35.1-43.[address] [facility] Hematocrit Auto (Bld) [Volum e fraction]Ordered By: Matt Redmond on 05-21-2023 Hematocrit (Bld) [Volume fraction] 39.5 % 37-47 [facility] Immature granulocytes/100 WB C Auto (Bld)Ordered By: Matt Redmond on 05-21-2023 Immature granulocytes/100 WBC (Bld) 0.200 % 0.0-0.9 [facility] Comment on above: IG% - Immature Granu locytes (promyelocytes, myelocytes and metamyelocytes) > 1% indicates that a LEFT SHIFT is Present. Laboratory - Chemistry and C hemistry - challengeOrdered By: Matt Redmond on 05-21-2023 Albumin/Globulin [Mass ratio] 1.1 {ratio} 0.9-2.4 [facility] ALP [Catalytic activity/Vol] 38 U/L 45-117 [facility] ALT [Catalytic activity/Vol] 20 U/L 13-56 [facility] CO2 [Moles/Vol] 28.0 mmol/L 21.0-32.0 [facility] Globulin (S) [Mass/Vol] 3.3 g/dL 2.2-4.2 [facility] Urea nitrogen/Creatinine [Mass ratio] 29.2 mg/mg 10-20 [facility] - Hematology and Cell countsOrdered By: Matt Redmond on 05-21-2023 MCH (RBC) [Entitic mass] 31.0 pg 27.0-32.0 [facility] MCHC (RBC) [Mass/Vol] 32.9 g/dL 32-36 [facility] Nucleated RBC/100 WBC (Bld) [Ratio] 0 % 0-5 [facility] Platelet mean volume (Bld) [Entitic vol] 10.5 fL 6.2-12.0 [facility] Platelets (Bld) [#/Vol] 153 10*3/uL 150-450 [facility] No Panel InformationOrdered By: Matt Redmond on 05-21-2023 Estimated GFR (MDRD) Amer 85 mL/min >60 [facility] Comment on above: GFR Calc Estimated GFR (MDRD) Non-Af Amer 70 mL/min >60 [facility] Comment on above: Non- GFR Calc Valproic Acid (Depakene) Level 94 ug/mL 50-100 [facility] RBC Auto (Bld) [#/Vol]Ordere d By: Matt Redmond on 05-21-2023 RBC (Bld) [#/Vol] 4.20 10*6/uL 4.2-5.4 [facility] Serum or plasma calcium pricilla urement (mass/volume)Ordered By: Matt Redmond on 05-21-2023 Calcium [Mass/Vol] 9.3 mg/dL 8.5-10.[address] [facility] Serum or plasma creatinine m easurement (mass/volume)Ordered By: Matt Redmond on 05-21-2023 Creatinine [Mass/Vol] 0.86 mg/dL 0.55-1.02 [facility] Comment on above: The validity of the calculated GFR & GFRAA in patients over 70 years has not been determined. Clinical correlation is essential. Serum or plasma urea nitroge n measurement (mass/volume)Ordered By: Matt Redmond on 05-21-2023 Urea nitrogen [Mass/Vol] 25 mg/dL 7-18 [facility] Thin prep Papanicolaou smear with manual screeningOrdered By: Matt Redmond on 05-21-2023 Thin prep Papanicolaou smear with manual screening 3.6 g/dL 3.2-5.0 [facility] Thin prep Papanicolaou smear with manual screening 17 U/L 15-37 [facility] Thin prep Papanicolaou smear with manual screening 7 5-15 [facility] Vital Signs Date Time Vital Sign Value Performing Clinician Sotero newman 08-27-2024 13:21-0400 Body height 167.[address] Jamal Holbrook DO Work Phone: [facility] 08-27-2024 13:16-0400 Body mass index (BMI) [Ratio] 27.6 kg/m2 Dr. Jamal Holbrook DO Work Phone: [facility] 08-27-2024 13:16-0400 Body weight 77.[address] Jamal Holbrook DO Work Phone: [facility] 08-27-2024 13:16-0400 Diastolic blood pressure 82 mm[Hg] Dr. Jamal Holbrook DO Work Phone: [facility] 08-27-2024 13:16-0400 Systolic blood pressure 118 mm[Hg] Dr. Jamal Holbrook DO Work Phone: [facility] Encounters Encounter Date Encounter Type Care Provider Facility Start: 09-05-2024 ambulatory Jamal Holbrook Facility: [facility] Start: 08-27-2024 End: 08-27-2024 Patient encounter procedure Thelma STALEY -[facility] Work Phone: Start: 08-27-2024 End: 08-27-[address] Jamal Holbrook DO Work Phone: -[facility] Start: 07-26-2024 ambulatory Matt Redmond Facility:[facility] Start: 06-11-2024 End: 06-11-[address] Jamal Holbrook DO Work Phone: [facility] Work Phone: Start: 06-11-2024 End: 06-11-[address] 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) [facility] Payers Date Payer Category Payer Private Health Insurance 101 [id number] 2023 Self-pay [id number] 2014 Unknown [id number] Private Health Insurance [id number] Self-pay [id number] Unknown [id number] [id number] [id number] Unknown [id number] 2.16.8 [id number] Unknown [id number] 2.16.8 [id number] Unknown [id number] 2.16.8 [id number] Unknown [id number] 2.16.8 [id number] Unknown [id number] 2.16.8 [id number] Social History Date Type Detail Facility [facility]: [facility] Start: 1955 Sex Assigned At Female [facility] Start: 09-04-2023 [facility] Start: 06-16-2024 Sex Female (finding) [facility] Evaluation note Note Date & Type Note Facility Evaluation note No assessment information availa ble [facility] Work Phone: Reason for referral (narrative) Note Date & Type Note Facility Reason for referral (narrative) No reason for referral information available [facility] Work Phone: Summary Purpose Family History No Family History Records Found Relationship Condition Age at Onset Recorded Date/T francine father Malignant neoplasm Unknown sister Malignant neoplasm Unknown mother Malignant neoplasm of breast 85 Advance Directives No Advanced Directives Records FoundNo Advanced Directives Records Found Chief Complaint and Reason for Visit Chief Complaint Admit Date Annual ([employer]) August 27, 2024 1:12p m Additional Source Comments INFORMATION SOURCE (unrecogn ized section and content) DATE CREATED AUTHOR 08/22/2017 [facility] DATE CREATED AUTHOR AUTHOR'S ORGANIZ ATION 08/28/2024 [facility] Care Teams (unrecognized sec tion and content) Team Status: Active Member Role Status Dates Dr. Jamal Holbrook DO Family Provider Active Dr. Jamal Holbrook DO Primary Care Provider Active Team Status: Inactive Member Role Status Dates Dr. Jamal Holbrook DO Primary Care Provider Active Dr. Matt Redmond MD Attending Provider, Referring Pro vider Active Team Status: Active Member Role Status Dates Dr. Jamal Holbrook DO Primary Care Provider Active Team Status: Inactive Member Role Status Dates Dr. Jamal Holbrook DO Primary Care Provider Active Start: June 11, 2024 End: June 11, 2024 Dr. Matt Redmond MD Attending Provider Active S tart: June 11, 2024 End: June 11, 2024 Dr. Matt Redmond MD Referring Provider Active S tart: June 11, 2024 End: June 11, 2024 Team Status: Active Member Role/Relationship Status Dates Dr. Jamal Holbrook DO Primary Care Provider Active Team Status: Inactive Member Role/Relationship Status Dates Dr. Jamal Holbrook DO Primary Care Provider Active Start: June 11, 2024 End: June 11, 2024 Dr. Matt Redmond MD Attending Provider Active S tart: June 11, 2024 End: June 11, 2024 Dr. Matt Redmond MD Referring Provider Active S tart: June 11, 2024 End: June 11, 2024 Team Status: Inactive Member Role/Relationship Status Dates Dr. Jamal Holbrook DO Primary Care Provider Active Start: August 27, 2024 End: August 27, 2024 Dr. Jamal Holbrook DO Referring Provider Active Start: August 27, 2024 End: August 27, 2024 Thelma Prasad NP, HOSPICE CARE SALES CONSULTANT-C Attending Provider Active Start: August 27, 2024 End: August 27, 2024 Goals (unrecognized section and content) Goals may be documented in a n alternate sectionGoals may be documented in an alternate sectionGoals may be documented in an alternate section FOR RECORDS PERTAINING TO PATIENTS WHO ARE OR HAVE BEEN ENROLLED IN A CHEMICAL DEPENDENCY/SUBSTANCEABUSE PROGRAM, SOME INFORMATION MAY BE OMITTED. This clinical summary was aggregated from multiple sources. Caution should be exercised in using it in the provision of clinical care. This summary normalizes information from multiple sources, and as a consequence, information in this document may materially change the coding, format and clinical context of patient data. In addition, data may be omitted in some cases. CLINICAL DECISIONS SHOULD BE BASED ON THE PRIMARY CLINICAL RECORDS. [facility] [employer] [facility]. provides no warranty or guarantee of the accuracy or completeness of information in this document.
== END | disposition home or self-care (01) ==
LOC: OPBI 10:33
PROVIDERS: PCP Family Medicine; Referring Provider Family Medicine; Visit Provider Family Medicine
DX: Z12.31 Encounter for screening mammogram for malignant neoplasm of breast (principal)
CPT/HCPCS: 77063; 77067